=== PATIENT | male | born 1980 | race Caucasian/White ===

== ENCOUNTER → 2021-01-11 | Outpatient (CLI) | payer BC ==
[2015-07-10 21:06] VITALS: BP 152/96
--- NOTE | 2021-01-11 09:20 | RAD ---
EXAMINATION: US RENAL ARTERY DUPLEX INDICATION: 40 years, Male, hypertension. COMPARISON: None TECHNIQUE: Grayscale, color and spectral doppler evaluation of the kidneys and renal arteries was per formed. FINDINGS: AORTIC VELOCITY: 106 cm/s. RIGHT KIDNEY: MEASURES: 10.8 cm in length. MORPHOLOGY/PARENCHYMA: Normal corticomedullary differentiation with no shadowing calculus or discrete masses. COLLECTING SYSTEM: No hydronephrosis. RIGHT SEGMENTAL ARTERY RESISTIVE INDEX: 0.6 SEGMENTAL RENAL ARTERY WAVEFORMS: Normal RIGHT RENAL ARTERY PEAK SYSTOLIC AND END DIASTOLIC VELOCITIES IN CM/S: PROX PSV/EDV: 105 cm/s. MID PSV/EDV: 111 cm/s. DISTAL PSV/EDV: 87 cm/s. RENAL VEIN: Patent. Right renal artery/aorta: 1.0 LEFT KIDNEY: MEASURES: 12.3 in length. MORPHOLOGY/PARENCHYMA: Normal corticomedullary differentiation with no shadowing calculus or discrete masses. COLLECTING SYSTEM: No hydronephrosis. LEFT SEGMENTAL ARTERY RESISTIVE INDEX: 0.6 SEGMENTAL RENAL ARTERY WAVEFORMS: Normal LEFT RENAL ARTERY PEAK SYSTOLIC AND END DIASTOLIC VELOCITIES IN CM/S: PROX PSV/EDV: 90 cm/s. MID PSV/EDV: 62 cm/s. DISTAL PSV/EDV: 58 cm/s. RENAL VEIN: Patent. Left renal artery/aorta: 0.85 OTHER: None IMPRESSION: 1. No evidence of renal artery stenosis bilaterally. 2. Normal sonographic appearance of the kidneys. Electronically signed by: Alexy Allen MD (01/11/2021 9:18 AM) [facility]
--- NOTE | 2021-01-11 11:20 | CARD ---
MR#: [id number] Date of Study: 01/11/2021 Ordering Physician: LUIS PUENTES, Referring Physician: LUIS PUENTES Tech: Yudy Brown [facility] APPROVED REPORT EXAM: Two-dimensional and M-mode echocardiogram with Doppler and color Doppler. Other Information Quality : AverageHR: 66bpm Rhythm : NSR INDICATION Hypertension/HCVD RISK FACTORS Hypertension Obesity 2D DIMENSIONS RVDd3.2 (2.9-3.5cm)Left Atrium(2D)3.9 (1.6-4.0cm) IVSd1.4 (0.7-1.1cm)Aortic Root(2D)3.7 (2.0-3.7cm) LVDd4.1 (3.9-5.9cm)LVOT Diameter2.5 (1.8-2.4cm) PWd1.4 (0.7-1.1cm)LVDs2.3 (2.5-4.0cm) FS (%) 44.3 %SV57.9 ml LVEF(%)76.0 (>50%) Aortic Valve AoV Peak Johnie.122.2cm/sAoV VTI25.3cm AO Peak GR.6.0mmHgLVOT Peak Johnie.115.1cm/s AO Mean GR.3mmHgAVA (VMAX)4.66cm2 Mitral Valve MV E Bxhgrmun36.6cm/sMV DECEL HUHF785ue MV A Sczxrjts87.6cm/sE/A Ratio0.8 Pulmonary Valve PV Peak Wyriumtl023.8cm/s Tricuspid Valve TR P. Tjwmijlg096ck/sTR Peak Gr.22mmHg LEFT VENTRICLE The left ventricle is normal size. There is mild concentric left ventricular hypertrophy. The left ve ntricular systolic function is normal. Left ventricular ejection fraction is 55 to 60%. There is nor mal LV segmental wall motion. Transmitral Doppler flow pattern is Grade I-abnormal relaxation pattern . RIGHT VENTRICLE The right ventricle is normal size. There is normal right ventricular wall thickness. The right ventr icular systolic function is normal. ATRIA The left atrium size is normal. The right atrium size is normal. The interatrial septum is intact wit h no evidence for an atrial septal defect or patent foramen ovale as noted on 2-D or Doppler imaging. AORTIC VALVE The aortic valve is normal in structure and function. Doppler and Color Flow revealed no significant aortic regurgitation. There is no significant aortic valvular stenosis. MITRAL VALVE The mitral valve is normal in structure and function. There is no evidence of mitral valve prolapse. There is no mitral valve stenosis. Doppler and Color-flow revealed mild mitral regurgitation. TRICUSPID VALVE The tricuspid valve is normal in structure and function. Doppler and Color Flow revealed trace tricus pid regurgitation. Estimated PAP 25 mmHg. There is no tricuspid valve stenosis. PULMONIC VALVE The pulmonary valve is normal in structure and function. Doppler and Color Flow revealed mild pulmoni c valvular regurgitation. GREAT VESSELS The aortic root is normal in size. The ascending aorta is normal in size. The IVC is normal in size a nd collapses >50% with inspiration. PERICARDIAL EFFUSION There is no evidence of significant pericardial effusion. Critical Notification Critical Value: No <Conclusion> The left ventricle is normal size. The left ventricular systolic function is normal. Left ventricular ejection fraction is 55 to 60%. There is mild concentric left ventricular hypertrophy. Doppler and Color Flow revealed no significant aortic regurgitation. There is no significant aortic valvular stenosis. Doppler and Color-flow revealed mild mitral regurgitation. Doppler and Color Flow revealed trace tricuspid regurgitation. Estimated PAP 25 mmHg. Signed by : Mitchell Redding MD Electronically Approved : 01/11/2021 11:19:43
== END ==
LOC: US 06:54
PROVIDERS: ATTEND Internal Medicine Cardiovascular Disease
DX: I08.8 Other rheumatic multiple valve diseases (principal); I10 Essential (primary) hypertension
CPT/HCPCS: 93306; 93975